=== PATIENT | female | born 1975 | race Caucasian/White ===

== ENCOUNTER 2020-03-22 11:26 | Inpatient (IN) | payer OTHER ==
[~2020-03-22] VITALS: Ht 165.1 cm; Wt 58.5 kg
[2020-03-22 11:31] VITALS: BP 135/78
[2020-03-22] MEDS ORDERED: TYLENOL325 M1 PO (11:47)
[2020-03-22 12:05] LABS: HEMATOCRIT 41.8 % (37.0-47.0); HEMOGLOBIN 18.9 gm/dL (12.0-15.0); MCH 39.7 pg (26.0-34.0); MCHC 45.1 g/dL (28.0-37.0); PLATELET COUNT 395 thou/uL (150-400); RBC 4.75 mil/uL (4.20-5.00); RDW 13.7 % (10.5-14.5); WBC 23.1 thou/uL (4.0-11.0)
[2020-03-22 12:26] LABS: POTASSIUM 3.3 mmol/L (3.5-5.1)
[2020-03-22 12:50] LABS: URINE BILIRUBIN NEGATIVE (Negative); URINE BLOOD 2+ (Negative); URINE CLARITY CLEAR; URINE COLOR YELLOW; URINE GLUCOSE-RANDOM* 2+ (Negative); URINE KETONES 3+ (Negative); URINE LEUKOCYTES-REFLEX NEGATIVE (Negative); URINE NITRITE-REFLEX NEGATIVE (Negative); URINE PROTEIN (DIPSTICK) NEGATIVE (Negative); URINE SPECIFIC GRAVITY 1.015 (1.005-1.035); URINE UROBILINOGEN 0.2 E.U./dl (0.2-1.0)
[2020-03-22 13:38] LABS: CASTS None Seen /LPF (None Seen); SQUAMOUS >10 Many /LPF (0-3)
[2020-03-22 13:39] LABS: BACTERIA-REFLEX None Seen /HPF (None Seen); CRYSTALS None Seen /LPF (None Seen); URINE RBC 0-2 Rare /HPF (0-2); URINE WBC-REFLEX 0-5 Rare /HPF (0-5)
[2020-03-22 13:44] LABS: CREATININE 0.5 mg/dL (0.6-1.0)
[2020-03-22 13:48] LABS: CALCIUM 6.6 mg/dL (8.5-10.1); TOTAL BILIRUBIN 0.3 mg/dL (0.2-1.0)
[2020-03-22 13:51] LABS: ALBUMIN 3.2 g/dL (3.4-5.0)
[2020-03-22 14:15] LABS: ABSOLUTE NEUTROPHILS 20.6 thou/uL (1.4-8.2); ANISOCYTOSIS 1+
[2020-03-22 21:01] VITALS: BP 105/67
[2020-03-22 21:33] VITALS: BP 106/66
[2020-03-22 23:03] VITALS: BP 110/69
[2020-03-23] VITALS (17 sets, daily range): BP systolic 100–125; BP diastolic 49–73
[2020-03-23 01:25] LABS: HEMATOCRIT 46.1 % (37.0-47.0); HEMOGLOBIN 18.3 gm/dL (12.0-15.0); MCH 34.9 pg (26.0-34.0); MCHC 39.6 g/dL (28.0-37.0); PLATELET COUNT 402 thou/uL (150-400); RBC 5.24 mil/uL (4.20-5.00); RDW 14.1 % (10.5-14.5); WBC 17.3 thou/uL (4.0-11.0)
[2020-03-23 02:06] LABS: GLYCOHEMOGLOBIN (HGB A1C) 10.3 % (4.8-5.6)
[2020-03-23 02:50] LABS: ANION GAP 21 mmol/L (7-16); CHLORIDE 97 mmol/L (98-107); POTASSIUM 3.4 mmol/L (3.5-5.1); SODIUM 128 mmol/L (136-145)
[2020-03-23 02:51] LABS: BUN 6 mg/dL (7-18); CREATININE 0.7 mg/dL (0.6-1.0); GLUCOSE 330 mg/dL (74-106)
[2020-03-23 02:52] LABS: MAGNESIUM 1.1 mg/dL (1.8-2.4)
[2020-03-23 02:53] LABS: CALCIUM < 5.0 mg/dL (8.5-10.1); CO2 10 mmol/L (21-32)
[2020-03-23 03:00] LABS: CHOLESTEROL < 50 mg/dL (<200)
[2020-03-23 03:01] LABS: DIRECT BILIRUBIN 0.1 mg/dL (<0.1-0.2); LIPASE 5354 U/L (73-393); SGOT 31 U/L (15-37); TOTAL BILIRUBIN 0.6 mg/dL (0.2-1.0)
[2020-03-23 03:02] LABS: ALBUMIN 2.5 g/dL (3.4-5.0); SGPT 17 U/L (30-65); TOTAL PROTEIN 5.4 g/dL (6.4-8.2)
[2020-03-23 03:03] LABS: TRIGLYCERIDE 317 mg/dL (<150)
[2020-03-23 03:07] LABS: ANISOCYTOSIS 1+; LARGE PLATELETS FEW; PLATELET ESTIMATE INCREASED; POIKILOCYTOSIS 1+
[2020-03-23 05:52] LABS: BE(vivo) -13.6 mmol/L (-2 to +3); HCO3 12.6 mmol/L (22.0-26.0); PO2 71.7 mmHg (80.0-100.0); sO2 91.7 % (92.0-98.0)
[2020-03-23 05:53] LABS: pH 7.227 (7.360-7.450)
--- NOTE | 2020-03-23 07:38 | NUR ---
alert and oriented x 4, lungs clear-room air. C/O SIGNIFICANT ABDOMINAL PAIN, PARTIAL RELIEF NOTED WITH IV DILAUDID. ALL CRITICAL LABS CALLED TO [facility], ORDERS TAKEN, NOTED, IMPLEMENTED. OOB TO USE BSC WITH SBA, NO DIFFICULTY VOIDING. ORDERS FOR TRANSFER TO ICU FOR DKA PROTOCOL, AWAITING BED PLACEMENT.
--- NOTE | 2020-03-23 08:44 | NUR ---
Assumed pt care at 7am.Pt in bed resting and c/o abdominal pain rated 10/10. Pain shot given as ordered.Dka protocol initiated.Blood sugar was 365. Bolus regular insulin given prior to insulin gtt started at 0815. Report given to Shantel luo in icu.Pt transfered per bed to icu at 0825 in stable condition.
[2020-03-23 09:53] LABS: ALBUMIN 1.7 g/dL (3.4-5.0); BUN 9 mg/dL (7-18); CREATININE 0.6 mg/dL (0.6-1.0); GLUCOSE 331 mg/dL (74-106); PHOSPHORUS 1.9 mg/dL (2.5-4.9)
[2020-03-23 10:07] LABS: CALCIUM < 5.0 mg/dL (8.5-10.1)
[2020-03-23 11:55] LABS: URINE BLOOD 2+ (Negative); URINE CLARITY CLEAR; URINE COLOR YELLOW; URINE GLUCOSE-RANDOM* 3+ (Negative); URINE KETONES 3+ (Negative); URINE LEUKOCYTES-REFLEX NEGATIVE (Negative); URINE NITRITE-REFLEX NEGATIVE (Negative); URINE PROTEIN (DIPSTICK) 2+ (Negative); URINE SPECIFIC GRAVITY 1.025 (1.005-1.035); URINE UROBILINOGEN 0.2 E.U./dl (0.2-1.0)
[2020-03-23 11:59] LABS: ICTOTEST (BILI CONFIRMATORY) Negative (Negative); URINE BILIRUBIN NEGATIVE (Negative)
--- NOTE | 2020-03-23 12:46 | NUR ---
SPOKE WITH PHARMACY, WILL AWAIT LAB RESULTS FROM 1330 TO DECIDE IF HCO3 IS NEEDED, HCO3 IS NOT COMPATIBLE WITH POTASSIUM, THEY WILL SPEAK TO DR LAUREANO AND SEE IF IT IS NEEDED. WILL SEE HOW PT ACIDOSIS IS. DKA PROTOCOL BEING FOLLOWED AT THE MOMENT, ELECTROLYTE REPLACEMENTS FINISHED AND AWAITING LABS FOR NEXT LEVELS.
--- NOTE | 2020-03-23 13:39 | NUR ---
CALLED DR LAUREANO REGARDING PT MRCP, HE WANTS TO WAIT UNTIL ELECTROLYTES ARE IMPROVED BEFORE DOING TEST. DAUGHTER HELPING PT FILL OUT MRI SCREENING FORM.
--- NOTE | 2020-03-23 14:02 | NUR ---
PT ADMITTED RELATED TO PANCREATITIS. CM REVIEWED CHART AND SPOKE WITH CARE TEAM. PT IS BELARUSIAN SPEAKING AND ER DOCUMENTATION INDICATED THAT THEY HAD GOTTEN HX FROM PT'S DTR WITH HER PERMISSION. CM CALLED AND SPOKE WITH PT'S DTR SOLITARIO AT . SHE INDICATED THAT PT HAD BEEN LIVING IN AN APARTMENT WITH HER AND HER FAMILY FORMULA WEIGHER WITH 5 STEPS TO ENTER AND NO STEPS INSIDE. SHE INDICATED THAT PT HAD BEEN INDEPENDENT WITH GAIT AND ADLS FORMULA WEIGHER BUT THAT SHE HAD NEEDED HELP LIFTING HEAVY OBJECTS. PT'S DTR INDICATED THAT PT IS PATIENT PAY AND DOESN'T HAVE A PCP. CM INDICATED THAT [facility] WOULD LIKELY REACH OUT TO THEM DURING PT'S STAY AND THAT CM COULD PROVIDE [facility] FOR RESOURCES FOR FOLLOW UP CARES. CHART INDICATES THAT PT HAD CHOLECYSTCTOMY 3 MONTHS AGO AT [facility]. PT'S DTR INIDCATED THAT SHE HAD SUPPLIES FOR TESTING BLOOD SUGARS AND HER DM MEDS PRIOR TO ADMISSION. CARE TEAM INDICATED PT IS IN DKA AND THAT GI INDICATED SHE WILL NEED AN ERCP ONCE MEDIALLY STABLE. CM TO FOLLOW INDICATED WITH DC PLANNING. TO FOLLOW INDICATED WITH DC PLANNING. CARE TEAM INDICATED THAT PT IS IN
[2020-03-23 14:30] LABS: BACTERIA-REFLEX 1-9 Few /HPF (None Seen); CASTS None Seen /LPF (None Seen); CRYSTALS None Seen /LPF (None Seen); SQUAMOUS >10 Many /LPF (0-3); URINE RBC 0-2 Rare /HPF (0-2); URINE WBC-REFLEX 0-5 Rare /HPF (0-5)
[2020-03-23 15:33] LABS: BUN 8 mg/dL (7-18); CHLORIDE 108 mmol/L (98-107); CO2 16 mmol/L (21-32); CREATININE 0.7 mg/dL (0.6-1.0); GLUCOSE 204 mg/dL (74-106); MAGNESIUM 2.4 mg/dL (1.8-2.4)
[2020-03-23 15:39] LABS: ANION GAP 12 mmol/L (7-16)
[2020-03-23 15:40] LABS: CALCIUM < 5.0 mg/dL (8.5-10.1)
[2020-03-23 15:42] LABS: SODIUM 136 mmol/L (136-145)
[2020-03-23 17:45] LABS: CREATININE 0.7 mg/dL (0.6-1.0); MAGNESIUM 2.2 mg/dL (1.8-2.4); POTASSIUM 3.8 mmol/L (3.5-5.1)
[2020-03-23 17:48] LABS: CALCIUM 4.9 mg/dL (8.5-10.1)
--- NOTE | 2020-03-23 18:29 | NUR ---
PT WITH ANOTHER CRITICAL CALCIUM, CALLED DR LAUREANO AND LET HIM KNOW, HE ASKED THAT I CALL ENDOCRINOLOGY TO GET THEIR SUGGESTION HOW TO PROCEED. PAGED DR SEGAL AT 846, NO CALL. PAGING AGAIN NOW
--- NOTE | 2020-03-23 19:39 | NUR ---
PT HAD LITTLE OUTPUT THE LAST FEW TIMES SHE ATTEMPTED TO URINATE. BLADDER SCANNED PT SHE HAD >350 MLS. PT STATES SHE FEELS LIKE SHE HAS TO URINATE. PT NOT WANTING TO BEAR DOWN D/T ABDOMINAL PAIN. PT ALSO ON PERIOD, GIVEN PADS AND DISPOSABLE UNDERWEAR.
[2020-03-24] VITALS (19 sets, daily range): BP systolic 96–131; BP diastolic 54–76
[2020-03-24 05:58] LABS: HEMATOCRIT 37.9 % (37.0-47.0); MCH 29.7 pg (26.0-34.0); MCHC 33.6 g/dL (28.0-37.0); MCV 88.5 fL (80.0-100.0); RBC 4.28 mil/uL (4.20-5.00); RDW 14.6 % (10.5-14.5); WBC 12.4 thou/uL (4.0-11.0)
[2020-03-24 06:13] LABS: HEMOGLOBIN 12.7 gm/dL (12.0-15.0)
--- NOTE | 2020-03-24 06:17 | NUR ---
Received report and assumed patient care. Patient noted to be on an Insulin gtt that was later discontnued by MD. Patient is oriented and Tongan speaking. Patient medicated for abdominal pain and Toradol was ordered for headache. Patient nauseated at beginning of shift but no longer had complaints of nausea. Patient VS remained stable and no acute events occurred. Patient is progressing towards goal.
[2020-03-24 06:46] LABS: ALBUMIN 1.8 g/dL (3.4-5.0); CREATININE 0.5 mg/dL (0.6-1.0); POTASSIUM 4.3 mmol/L (3.5-5.1); TOTAL BILIRUBIN 0.9 mg/dL (0.2-1.0); TOTAL PROTEIN 5.8 g/dL (6.4-8.2)
[2020-03-24 06:47] LABS: CALCIUM 5.3 mg/dL (8.5-10.1)
--- NOTE | 2020-03-24 08:35 | HC ---
[facility] [place] [address] CONSULTATION Name: JEN SHEPHERD Room #: 250-P ADM IN M.R.#: [id number] Admission: 03/22/20 Attend Phys: Josiah Samuels MD Discharge: Date of : 77 Report #: [id number] THIS REPORT FOR: cc: SKIP - [place] family physician/PCP SKIP - [place] family physician/PCP Jesi Adams MD ~ CC: SKIP physician/PCP Josiah Samuels DATE OF SERVICE: 03/23/2020 ENDOCRINE CONSULTATION NOTE CONSULTING PHYSICIAN: Dr. Samuels. REASON FOR CONSULTATION: DKA, type 2 diabetes mellitus. HISTORY OF PRESENT ILLNESS: This is a 44-year-old female patient whose medical background is significant for a diagnosis of type 2 diabetes mellitus, who presented to [facility]'s ER with complaints of diffuse severe abdominal pain associated with nausea, but no vomiting. It appears that her pain started suddenly and was diffuse and rather intense. When the patient presented, she was found to have a blood glucose of 343 mg/dL in addition to metabolic changes consistent with DKA. Subsequently, she was admitted to the ICU for further management and monitoring. The patient indicated through a Jordanian speaking reformatory attendant that she has had diabetes for about 10 years and that she is maintained on what is likely metformin monotherapy. She indicates that she monitors her blood glucose values sporadically and that these have been mostly in the low 100 mg/dL range until the past few days when her pain started acting up and she noted a an unusual elevation in her blood glucose values. She is not aware of issues pertaining to diabetic retinopathy, nephropathy or neuropathy. She does not take any other medications. The patient denies excessive alcohol intake. REVIEW OF SYSTEMS: CONSTITUTIONAL: Fatigue, tiredness. No body weight changes, fever or chills. HEENT: Negative for sore throat, sinus pain or ear drainage. PULMONARY: Negative for shortness of breath, cough or hemoptysis. CARDIAC: Negative for chest pain, syncope or presyncope. GASTROINTESTINAL: Noted for diffuse severe abdominal pain. A rapid onset occasional nausea, no vomiting. NEUROLOGY: Negative for loss of consciousness, headaches, seizure activity. PSYCHIATRIC: Negative for delusions, hallucinations. [facility] [address] [place] [address] CONSULTATION Name: JEN SHEPHERD Room #: [address] [place] [address] IN [facility].#: [id number] Admission: 03/22/20 Attend Phys: Josiah Samuels MD Discharge: Date of : 77 Report #: [id number] Otherwise, review of systems noncontributory other than those mentioned in HPI. PAST MEDICAL HISTORY: Noted for: 1. Type 2 diabetes mellitus. 2. Cholecystitis, status post cholecystectomy 3 months ago. OUTPATIENT MEDICATIONS: Likely metformin therapy, unknown dose. ALLERGIES: No known drug allergies. FAMILY HISTORY: Noncontributory. SOCIAL HISTORY: The patient denies use of tobacco, alcohol or illicit drugs. PHYSICAL EXAMINATION: GENERAL: Middle-aged female patient who appears to be in pain and anxious. VITAL SIGNS: Blood pressure is 106/67 mmHg, heart rate is 116 beats per minute, respiration 18 per minute, temperature 36.8 degrees Celsius. CONSTITUTIONAL: The patient is lying in bed supine, appears uncomfortable, in pain and anxious. HEENT: Anicteric sclerae. Intact extraocular motions. NECK: Supple, without JVD, carotid bruits or lymphadenopathy. I do not appreciate thyromegaly. CHEST: Noted for tachypnea, but with good air entry bilaterally. Scattered rales. No wheeze or crackles. HEART: Regular rate and rhythm without murmurs or gallops. ABDOMEN: Soft, lax, but with severe tenderness to mild palpation with voluntary guarding. She has sluggish bowel sounds. EXTREMITIES: Lower extremity exam is negative for ankle edema, skin breaks or ulcerations. Pedal pulses are appreciated. NEUROLOGIC: Awake, alert and oriented to time, place and person. The remainder of her examination is largely nonfocal. LABORATORY RESULTS: On arrival, blood glucose was 317 and has since ranged from 309-365 mg/dL. Sodium 128, potassium 3.4, chloride 97, CO2 of 10, anion gap 21, BUN 6, creatinine 0.7, AST 31, lipase 5354, total bilirubin 0.6, calcium less than 5.0, magnesium 1.1, alkaline phosphatase 56, ALT 17, total protein 5.4, albumin 2.5, EGFR 91. Lactic acid 2.6, total cholesterol of 50, triglycerides 317, white blood count 17.3, hemoglobin 18.3, hematocrit 46.1, platelets 402. Hemoglobin A1c is 10.3%. ASSESSMENT AND PLAN: 1. Diabetic ketoacidosis. The patient presents in a manner consistent with diabetic ketoacidosis. She will be managed with IV insulin therapy as per IV insulin protocol at [facility], as well as IV fluid management [facility] [address] [place] [address] CONSULTATION Name: JEN SHEPHERD Room #: 250-P [facility] IN [place]#: [id number] Admission: 03/22/20 Attend Phys: Josiah Samuels MD Discharge: Date of : 77 Report #: [id number] and frequent blood glucose monitoring. A transition to subcutaneous insulin therapy will be determined based upon clinical stability. 2. Type 2 diabetes mellitus. The patient carries a diagnosis of type 2 diabetes mellitus, which has been managed by metformin monotherapy for years. While she reports adequate glycemic control, her measured hemoglobin A1c speaks to inadequate control. The patient's current presentation with diabetic ketoacidosis implies insulin deficiency. A definitive type 2 diabetes management will be determined following her stabilization. 3. Hypocalcemia, severe and probably associated with hypomagnesemia, possible pancreatitis, and potentially vitamin D deficiency. I will check a vitamin D level in addition to the ongoing management that is underway. The patient is receiving calcium gluconate and I would propose active calcium monitoring to ensure her stability. 4. Pancreatitis. The patient has a severely elevated lipase level which with her clinical presentation is concerning for the possibility of pancreatitis. The patient is currently kept n.p.o. and is receiving support with IV fluids. Further monitoring will continue. I certainly appreciate this consultation by Dr. Samuels. <ELECTRONICALLY SIGNED> By: Jesi Adams MD 03/24/20 0835 [id number] Jesi Adams MD /nt
--- NOTE | 2020-03-24 11:20 | NUR ---
To MRI via w/c. States that pain mangagement regiment is effective.
--- NOTE | 2020-03-24 12:10 | NUR ---
Returned to room from MRI.
--- NOTE | 2020-03-24 13:19 | NUR ---
[facility] given pt's dtr Radha's contact number if they are not able to reach pt via her cell number. Pt will likely need a shawanda application and assist with an new scripts. [facility] clinic info provided in her dc instructions.
--- NOTE | 2020-03-24 16:31 | NUR ---
Patient progressing towards outcome goals. Tolerating ice chips without nausea or emesis. Resting quietly after pain meds, pain increases with movement. Report called to Mine OGLESBY on .
--- NOTE | 2020-03-24 17:09 | NUR ---
Patient transferred with belongings to [facility] via w/c.
--- NOTE | 2020-03-24 18:28 | NUR ---
ASSUMED CARE OF PT AT APPROX 1700 FROM ICU TRANSFER. ASSESSMENT CHARTED. IV ABX CONTINUED. PT REPORT 8/10 PAIN, TREATED WITH IV MEDS WITH LITTLE RELIEF. WILL CONTINUE TO MONITOR AND FOLLOW POC.
[2020-03-25 00:04] VITALS: BP 128/73
[2020-03-25 03:07] VITALS: BP 141/77
--- NOTE | 2020-03-25 04:40 | NUR ---
Assumed pt care at 1900. Pt is alert and oriented. No sign of distress noted in pt. Pt is alert and oriented, hebrew-speaking. Pt continues to verbalize abdominal pain and headache. Pain med administered as appropriate. Pt is ambulatory. Assessment completed and documented. Scheduled meds administered to pt. Denies any needs at this time.
[2020-03-25 06:02] LABS: HEMOGLOBIN 10.9 gm/dL (12.0-15.0); MCH 31.1 pg (26.0-34.0); MCV 88.8 fL (80.0-100.0); PLATELET COUNT 309 thou/uL (150-400); RDW 14.2 % (10.5-14.5); WBC 10.4 thou/uL (4.0-11.0)
[2020-03-25 07:15] VITALS: BP 120/61
[2020-03-25 07:48] LABS: CREATININE 0.5 mg/dL (0.6-1.0)
[2020-03-25 08:00] LABS: POTASSIUM 3.3 mmol/L (3.5-5.1)
[2020-03-25 09:39] LABS: ALBUMIN 1.9 g/dL (3.4-5.0); CALCIUM 6.4 mg/dL (8.5-10.1); CREATININE 0.5 mg/dL (0.6-1.0); POTASSIUM 3.1 mmol/L (3.5-5.1); TOTAL BILIRUBIN 1.1 mg/dL (0.2-1.0); TOTAL PROTEIN 6.2 g/dL (6.4-8.2)
[2020-03-25 11:01] VITALS: BP 134/82
[2020-03-25 12:59] LABS: ABSOLUTE NEUTROPHILS 7.7 thou/uL (1.4-8.2)
[2020-03-25 13:00] LABS: ANISOCYTOSIS SLIGHT
[2020-03-25 15:15] VITALS: BP 133/80
--- NOTE | 2020-03-25 18:15 | NUR ---
RECEIVED PT'S CARE AROUND 0720; PT. ON BED; ALERT; DURING AM ASSESSMENT AOX4; C/O PAIN OVER ABDOMEN & HEADACHE; PRN PAIN MEDICATION GIVEN WITH AM MEDICATIONS; RE-ASSESSMENT PT. ST. DECREASE PAIN; THROUGH THE DAY PT. C/O HEADACHE; BS ON THE 70-80s; ENDROCRINOLOGIST NOTIFIED; ORDERS RECEIVED; C/O ABDOMINAL DISTENTION; PHYSICIAN NOTIFIED DURING ROUNDING; ORDERS RECEIVED; FLUIDS D/C; C/O EDEMA; PHYSICIAN NOTIFIED DURING ROUNDING; PRN MEDICATION GIVEN; C/O NAUSE DURING THE EVENING; PRN MEDICATION GIVEN; KUB SHOWED CONSTIPATION; PHYSICIAN NOTIFIED; ORDERS RECEIVED; SR-ST ON THE MONITOR; ABLE TO HAVE BM AFTER MIRALAX GIVEN; ASSESSMENT CHARGED; FOLLOWING POC; WILL PASS ON REPORT;
[2020-03-25 19:34] VITALS: BP 134/87
[2020-03-26 04:52] VITALS: BP 135/77
[2020-03-26 05:33] LABS: HEMATOCRIT 29.8 % (37.0-47.0); HEMOGLOBIN 10.1 gm/dL (12.0-15.0); MCHC 33.9 g/dL (28.0-37.0); MCV 88.4 fL (80.0-100.0); RBC 3.38 mil/uL (4.20-5.00); RDW 14.2 % (10.5-14.5); WBC 9.1 thou/uL (4.0-11.0)
[2020-03-26 05:44] LABS: CALCIUM 7.5 mg/dL (8.5-10.1); CREATININE 0.5 mg/dL (0.6-1.0); POTASSIUM 3.3 mmol/L (3.5-5.1)
[2020-03-26 07:40] VITALS: BP 138/72
--- NOTE | 2020-03-26 08:18 | NUR ---
ASSUMED PT CARE AT 1900, PT IS AWAKE, ALERT AND ORIENTEDX4, ABLE TO MAKE NEEDS KNOWN, SR/ST ON THE MONITOR, C/O PAIN ON THE RLQ, PAIN MEDICATIONS GIVEN WITH PARTIAL RELIEF, ASSESSMENTS CHARTED, PT HAD ADEQUATE URINE OUTPUT,DECREASED SWELLING IN THE LOWER AND UPPER EXTREMITIES, MEDICATIONS GIVEN PER OCT, C/O HEADACHE, PAIN MEDICATIONS GIVEN PRN WITH PARTIAL RELIEF, BNO ACUTE DISTRESS OVERNIGHT,PASSED ON REPORT TO DAY NURSE
[2020-03-26 12:00] VITALS: BP 91/50
[2020-03-26 15:02] VITALS: BP 111/58
[2020-03-26 16:00] VITALS: BP 135/65
[2020-03-26 20:00] VITALS: BP 147/91
--- NOTE | 2020-03-26 20:21 | NUR ---
RECEIVED PT'S CARE AROUND 709; PT. ON BED; ALERT; DURING AM ASSESSMENT AOX4; C/O PAIN; PRN PAIN MEDICATION GIVEN WITH AM MEDICATION; POTASSIUM & MAGNESSIUM REPLACED PER PROTOCOL; C/O ABDOMINAL PAIN AFTER EATING; DR. LAUREANO NOTIFIED DURING ROUNDING; JOHN RUBIO [employer]EN BUILDING MATERIALS DESIGNER NOTIFIED DURING ROUNDING; [place] IN FULL LIQUID DIET; POOR APPETITE; C/O NAUSEA IN THE MORNING; PRN MEDICATION GIVEN; SR-ST IN THE MONITOR; PRN PAIN PO PAIN MEDICATION ADD TO EMAR; HOSPITALIST UPDATE ABOUT PT. NOT ABLE TO TOLERATE DIET; ORDERS RECEIVED; ON FULL LIQUID; ASSESSMENT CHARGED; FOLLOWING POC; PASSED ON REPORT;
[2020-03-27 04:00] VITALS: BP 125/76
[2020-03-27 04:56] LABS: HEMOGLOBIN 9.8 gm/dL (12.0-15.0); MCH 29.8 pg (26.0-34.0); MCHC 33.7 g/dL (28.0-37.0); MCV 88.3 fL (80.0-100.0); RBC 3.29 mil/uL (4.20-5.00); RDW 14.3 % (10.5-14.5)
[2020-03-27 05:22] LABS: CALCIUM 7.7 mg/dL (8.5-10.1); CREATININE 0.5 mg/dL (0.6-1.0)
[2020-03-27 05:23] LABS: POTASSIUM 2.9 mmol/L (3.5-5.1)
[2020-03-27 05:25] LABS: DIRECT BILIRUBIN 0.2 mg/dL (<0.1-0.2); TOTAL BILIRUBIN 0.6 mg/dL (0.2-1.0); TOTAL PROTEIN 5.3 g/dL (6.4-8.2)
[2020-03-27 07:30] VITALS: BP 121/70
[2020-03-27 12:00] VITALS: BP 112/47; BP 121/45
--- NOTE | 2020-03-27 17:35 | NUR ---
ASSESSMENT CHARTED, MEDS PER OCT - PT WITH LOW K+ TODAY OF 2.9 GIVEN 60 MEQ OF PO K+ PER PROTOCOL - RECHECK K+ 3.2 40 ME IV BEING GIVEN. PT GIVEN PERCOCET X 1 DOSE THIS SHIFT FOR CO'S OF PAIN WITH MOD RELIEF. PT HAD ULTRASOUND AND ABDO COMPLETED ORDERED. UP TO THE BATHROOM INDEPENDANTLY. SIMON FULL LIQUID DIET. PT ALSO GIVEN MAG BOLUS ORDERED. NO CO'S OF NAUSEA. PT APPEARS TO BE RESTING COMFORTABLY AT THE PRESENT TIME.
[2020-03-27 19:15] VITALS: BP 131/68
[2020-03-28 04:20] VITALS: BP 111/67
--- NOTE | 2020-03-28 04:33 | NUR ---
ASSUME CARE 1900. PT/VITALS STABLE. INTERMITTENT ABDO PAIN NOTED WITH SOME RELIEF FROM PAIN MEDICATION. UP AD RICHY. ASSESSMENT CHARTED. PROGRESSING WELL WITH POC. NO DISTRESS NOTED. ADEQUATE REST. PLAN IS TO CONTINUE ABX TREATMENT. WILL CONTINUE TO MONITOR AND FOLLOW WITH POC
[2020-03-28 05:29] LABS: HEMOGLOBIN 10.2 gm/dL (12.0-15.0); MCHC 33.9 g/dL (28.0-37.0); MCV 88.6 fL (80.0-100.0); PLATELET COUNT 405 thou/uL (150-400); RBC 3.39 mil/uL (4.20-5.00); WBC 11.1 thou/uL (4.0-11.0)
[2020-03-28 05:39] LABS: CREATININE 0.5 mg/dL (0.6-1.0); POTASSIUM 3.4 mmol/L (3.5-5.1)
[2020-03-28 07:22] VITALS: BP 122/66
[2020-03-28 08:53] LABS: ABSOLUTE NEUTROPHILS 7.8 thou/uL (1.4-8.2); METAMYELOCYTES 2 %; PLATELET ESTIMATE NORMAL
[2020-03-28 11:02] VITALS: BP 120/70
--- NOTE | 2020-03-28 13:05 | NUR ---
ASSESSMENT CHARTED -MEDS PER MAR - GIVEN PERCOCET FOR PAIN. SIMON MOD AMOUNTS OF FULL LIQUID DIET. UP TO THE BATHROOM INDEPENDANTLY. NO CO'S OF NASUEA. ACCUCHECKS CHARTED COVERED PER SSI. REPORT GIVEN TO ON COMING NURSE - NURSE SPEAKS MONGOLIAN SO IS ABLE TO CONVERSE WITH PATIENT. NO CO'S AT THE PRESENT TIME.
[2020-03-28 14:14] LABS: MAGNESIUM 1.5 mg/dL (1.8-2.4); PHOSPHORUS 2.3 mg/dL (2.5-4.9)
[2020-03-28 15:16] VITALS: BP 109/64
--- NOTE | 2020-03-28 18:43 | NUR ---
CONTINUE SSI AND PAIN CONTROL. PT TAKING IN PO WELL.
[2020-03-28 19:53] VITALS: BP 105/68
--- NOTE | 2020-03-28 23:13 | NUR ---
ASSUMED PT CARE AT 1900, PT IS AWAKE, ALERT AND ORIENTEDX4, SR ON THE MONITOR, C/O PAIN IN THE RLQ AND RIGHT FLANK, PAIN MEDICINE GIVEN WITH PARTIAL RELIEF, VSS, BS STABLE, MEDICATION GIVEN PER OCT, PT TRANSFER TO ROOM 449 VIA A WHEEL CHAIR AT 2310, PT STABLE NO ACUTE DISTRESS NOTED, DAUGHTER STEPHAN UPDATED ABOUT PT TRANSFER
[2020-03-28 23:32] VITALS: BP 109/63
--- NOTE | 2020-03-29 03:20 | NUR ---
ASSUMED PT CARE AT 2315. PT IS A&O X4. PT IS UP AD RICHY. PT HAS A RIGHT AC. PT STATED THAT SHE HAS A HEADACHE. ADMINISTERED TYLENOL. PT IS PANAMANIAN SPEAKING. PT IS RESTING IN HER ROOM. I WILL CONTINUE TO MONITOR.
[2020-03-29 05:46] LABS: HEMATOCRIT 30.9 % (37.0-47.0); HEMOGLOBIN 10.5 gm/dL (12.0-15.0); MCH 30.1 pg (26.0-34.0); MCV 88.4 fL (80.0-100.0); PLATELET COUNT 429 thou/uL (150-400); RDW 14.4 % (10.5-14.5); WBC 11.6 thou/uL (4.0-11.0)
[2020-03-29 06:13] LABS: CALCIUM 8.4 mg/dL (8.5-10.1); CREATININE 0.5 mg/dL (0.6-1.0); POTASSIUM 3.2 mmol/L (3.5-5.1)
[2020-03-29 13:54] LABS: PLATELET ESTIMATE NORMAL
--- NOTE | 2020-03-29 14:56 | NUR ---
CARE TEAM INDICATED THAT PT IS PROGRESSING TOWARD GOAL OF DISHCARGE. PT'S DIET HAD BEEN ADVANCED TOLERATED. PT MAY NEED ASSISTANCE WITH ANY NEW MEDS ORDERED UPON DC. CARE TEAM INDICATED POSSIBLE DC TOMORROW. CM TO FOLLOW INDICATED WITH DC PLANNING.
[2020-03-29 15:00] VITALS: BP 114/62
--- NOTE | 2020-03-29 18:20 | NUR ---
Assumed patient care at 0715. Vital signs stable, ABD is tender upon palpation, distended. LSCTA, skin is clean, warm, dry and intact. Patient will start on a Soft Fiber Restricted Diet for breakfast. She has been on Full Liquid Diet today. No nausea and/or vomiting. Patient had a family member with her this evening. Family member translated that patient's stomach "feels like it is going to burst." This nurse gave patient Diet Lemon [place] Soda. Patient began burping and hopefully, this will relieve more gas. Patient rated her pain at a "level ten" at 1758; she was given Oxycodone 2 tabs po for abdominal pain (had to put that pain levl was a seven because medication is for pain level up to seven). She had the same dose at 0825. Medication has been effective. Education provided to patient and family member about keeping medications in a safe place if she discharges with them; they verbalized an understanding of this teaching. Pharmacy called this afternoon to report that patient's Magnesium Level was at a Level 1.7. Patient is on Magnesium protocol, therefore, she was given Magnesium Oxide 400mg po per protocol order. Blood sugar did not require any Sliding Scale Insulin Support at Dinnertime. Will report to on-coming nurse. *Patient reported that her abdominal pain increases when in sitting position*
[2020-03-29 19:15] VITALS: BP 116/60
--- NOTE | 2020-03-30 03:17 | NUR ---
ASSUMED PT CARE AT 1930. PT IS A&O X4. PT IS UP AD RICHY. LUNGS ARE CLEAR. NO EDEMA PRESENT. VSS. ABDOMEN DISTENDED. PT HAS COMPLAINTS OF ABDOMINAL PAIN AT A 7. ADMINISTERED OXYCODONE. PT IS RESTING IN HER ROOM. WILL CONTINUE TO MONITOR.
[2020-03-30 07:21] VITALS: BP 110/65
--- NOTE | 2020-03-30 09:57 | NUR ---
ASSUMED CARE AT 0700. PT IS ALERT AND ORIENTED. DANISH SPEAKING, UNDERSTANDS A LITTLE WALLISIAN. C/O ABD PAIN THIS AM. VSSA/RA. TOLERATING SMALL AMOUNT OF DIET. BLOOD SUGARS BEING MONITORED. PIV WITHOUT ISSUES. PAIN MEDS GIVEN ORDERED. PT IS STEADY ON HER FEET. UAL. NO FALL RISK. EDUCATED PT TO CALL IF NEEDS ARISE. CALL LIGHT IN REACH. WILL CONTINUE TO MONITOR
[2020-03-30] MEDS ORDERED: GLUCOPHAGE500 MG PO (10:33)
[2020-03-30] MEDS ORDERED: LANTUS100 UNIT/M SUBQ (10:33)
[2020-03-30] MEDS ORDERED: VITAMIN D21250 MC1 PO (10:33)
[2020-03-30] MEDS ORDERED: PEPCID20 MG PO (10:33)
[2020-03-30] MEDS ORDERED: HUMALOG100 UNIT/1 SUBQ (10:33)
[2020-03-30] MEDS ORDERED: PERCOCET PO (10:33)
== END 2020-03-30 13:15 | disposition home or self-care (01) | DRG 871 ==
LOC: ER 11:26 → EROBS 15:35 → 4W 21:34 → ICU 03-23 08:15 → 2N 03-24 16:33 → 4W 03-28 23:19
PROVIDERS: Emergency Medicine; Internal Medicine; Nurse Practitioner; Nurse Practitioner Family; Specialist; ADMIT Hospitalist; ATTEND Hospitalist
DX: A41.9 Sepsis, unspecified organism (principal); K85.90 Acute pancreatitis without necrosis or infection, unspecified; E11.10 Type 2 diabetes mellitus with ketoacidosis without coma; E87.1 Hypo-osmolality and hyponatremia; E46 Unspecified protein-calorie malnutrition; K83.09 Other cholangitis; R65.20 Severe sepsis without septic shock; I10 Essential (primary) hypertension; K80.50 Calculus of bile duct without cholangitis or cholecystitis without obstruction; E87.6 Hypokalemia; E83.51 Hypocalcemia; K76.0 Fatty (change of) liver, not elsewhere classified; Z90.49 Acquired absence of other specified parts of digestive tract; Z68.21 Body mass index [BMI] 21.0-21.9, adult; Z79.899 Other long term (current) drug therapy
CPT/HCPCS: 10040; 10078; 10081